=== PATIENT | female | born 2000 | race Caucasian/White ===

== ENCOUNTER 2019-09-19 10:45 | Emergency (ER) | payer OTHER, MEDICAID, SELFPAY ==
--- NOTE | ~2019-09-19 | US_ITS ---
EXAMINATION: US OB <=14 wk fetus w TV DATE: 09/19/2019 13:03 INDICATION: Vaginal bleeding during first trimester TECHNIQUE: Real-time pelvic transabdominal and transvaginal ultrasound was performed. COMPARISON: None. FINDINGS: The uterus measures 6.6 x 3.8 x 6.9 cm. There is an intrauterine gestational sac. A yolk s ac is identified. The heart motion is not detected. The crown rump length measures 5 mm , which correlates with an estimated gestational age of 6 weeks and 1 day(s) (+/-) 4 day(s). The right ovary measures 3.4 x 2.0 x 1.9 cm. The left ovary measures 3.2 x 1.7 x 2.0 cm. There is nor mal vascular flow in the ovaries. There is no free fluid in the pelvis. IMPRESSION: 1. Intrauterine with pole measuring 5 mm without detectable heart tones. Findin gs are suspicious for, but not diagnostic of, failure. If the patient is clinically stable, recommend followup with serial beta-hCG and ultrasound. 2. Estimated gestational age is 6 weeks and 1 day(s) (+/-) 4 day(s) and an estimated delivery date of 05/13/2020. Reviewed, dictated and finalized at location A. IMPRESSION: 1. Intrauterine with pole measuring 5 mm without detectable fet al heart tones. Findings are suspicious for, but not diagnostic of, f ailure. If the patient is clinically stable, recommend followup with serial bet a-hCG and ultrasound. 2. Estimated gestational age is 6 weeks and 1 day(s) (+/-) 4 day(s) and an endy mated delivery date of 05/13/2020.
--- NOTE | 2019-09-19 10:51 | ED.PREGNANCY ---
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 Patient reports yesterday she experienced some lower pelvic cramping, today has had some light spotting. No large blood clots or brisk bleeding. Patient reports she did have vaginal intercourse yesterday. Patient states last was complicated by a spontaneous miscarriage that required a D&C. Patient denies any other vaginal discharge. No new recent sexual partners or history of sexually transmitted infection. Patient denies back pain, no dysuria. Related Data Home Medications Medication Instructions Recorded Confirmed PNV cmb#95-ferrous fumarate-FA tablet PO 09/19/19 [] Allergies Allergy/AdvReac Type Severity Reaction Status Date / Time No Known Allergies Allergy Verified 09/19/19 10:56 Review of Systems Review of Systems: Narrative: CONSTITUTIONAL: Denies fever CARDIOVASCULAR: Denies chest pain RESPIRATORY: Denies cough or dyspnea. GASTROINTESTINAL: Denies abdominal pain, reports pelvic pain : Reports vaginal bleeding SKIN: Denies rash MUSCULOSKELETAL: Denies back pain NEUROLOGIC: Denies headache PMFSH Past Medical History Medical History Spontaneous miscarriage Surgical History Surgical History H/O dilation and curettage History of dental surgery Social History Social History (Updated 09/19/19 @ 11:22 by Suzanne Ty MD) Smoking status: Never smoker Alcohol intake: never Substance use: never Gender identity (if verbalized by the patient): Female Exam Narrative: Exam Narrative: GENERAL: Awake, alert, conversant HEAD: Normocephalic, atraumatic. EYES: PERRLA and EOMI. ENT: Nares clear, no rhinorrhea or epistaxis. Mucous membranes moist. NECK: Supple. CHEST: No respiratory distress, breathing even and non labored HEART: Regular rate, sinus rhythm ABDOMEN:Non distended, non tender : Labia majora and minora normal without lesions. Vagina without blood. No cervical motion tenderness. No adnexal tenderness or fullness bilaterally. No discharge present. EXTREMITIES: Normal range of motion. No edema. SKIN: Warm, dry, no rash. NEURO:No focal deficits. Alert and oriented x3 Course Vital Signs Vital signs: Vital Signs Temperature 36.9 C 09/19/19 10:52 Pulse Rate 63 09/19/19 10:52 Respiratory Rate 20 09/19/19 10:52 Blood Pressure 126/61 09/19/19 10:52 Pulse Oximetry 100 09/19/19 10:52 Temperature 36.9 C 09/19/19 10:52 Pulse Rate 63 09/19/19 10:52 Respiratory Rate 20 09/19/19 10:52 Blood Pressure 126/61 09/19/19 10:52 Pulse Oximetry 100 09/19/19 10:52 MDM - OB/Uterine Contractions MDM Narrative Medical decision making narrative: Patient presented to the emergency department for evaluation of vaginal bleeding in the setting of early . Patient with history of prior miscarriage. The time of initial assessment, ABCs are intact and vital signs are stable. Patient with a reassuring pelvic exam, no brisk bleeding. No large clots present. No tenderness or findings concerning for cervicitis or PID. Labs were drawn. Ultrasound shows pole without heartbeat. This could be due to demise. Patient's blood type is O+ based on previous record. I went back to reassess the patient and she had eloped from the emergency department. No nursing staff were able to see her prior to leaving. She is not able to hear the results of her ultrasound. Regardless, she does not need any RhoGam, no blood transfusions. Patient eloped. Differential
[2019-09-19 10:52] VITALS: BP 126/61; PULSE 63; RESP 20; TEMP 36.9; O2SAT 100
[2019-09-19 12:39] LABS: Basophils Percent Auto 0.4 % (0.2-1.2); Eosinophils Absolute Auto 0.1 K/mm3 (0-0.3); Eosinophils Percent Auto 0.7 % (0-4.4); Hematocrit 39.1 % (37.0-47.0); Hemoglobin 13.3 g/dL (12.0-15.0); Immature Granulocyte Absolute 0.02 K/mm3 (0.00-0.031); Immature Granulocyte Percent A 0.2 % (0-0.5); Lymphocytes Absolute Auto 2.99 K/mm3 (0.9-3.2); Lymphocytes Percent Auto 32.5 % (18.3-44.2); Mean Corpuscular Volume 85.4 fl (80-100); Mean Platelet Volume 9.4 fl (7.4-10.4); Monocytes Absolute Auto 0.9 K/mm3 (0.1-0.6); Monocytes Percent Auto 9.3 % (2.6-8.5); Neutrophils Absolute Auto 5.2 K/mm3 (1.3-6.7); Neutrophils Percent Auto 56.9 % (45.5-73.1); Platelet Count Result 329 k/mm3 (150-375); Red Blood Count 4.58 M/mm3 (4.2-5.4); Red Cell Distribution Width 11.9 % (11.5-14.5); White Blood Count 9.2 K/mm3 (4.5-10.0)
[2019-09-19 12:54] LABS: Alanine Aminotransferase 16 U/L (4-35); Albumin Level 4.6 g/dL (3.5-5.1); Alkaline Phosphatase 73 U/L (38-126); Aspartate Amino Transferase 33 U/L (14-36); Bilirubin,Total 0.7 mg/dL (0.2-1.3); Blood Urea Nitrogen 9 mg/dL (7-17); Calcium 9.2 mg/dL (8.4-10.2); Carbon Dioxide 23 mmol/L (22-30); Chloride 105 mmol/L (98-107); Estimated CRCL calculation 129 ml/min; Estimated Glomerular Filt Rate > 60; Glucose 84 mg/dL (65-105); Potassium 3.7 mmol/L (3.4-5.0); Sodium 136 mmol/L (137-145)
[2019-09-19 12:55] LABS: INR 1.1; Prothrombin Time 13.8 Seconds (11.1-14.7)
[2019-09-19 12:56] LABS: Partial Thromboplastin Time 30.5 SECONDS (22.3-36.8)
[2019-09-19 13:02] LABS: Add Urine Microscopic? YES; Appearance Urine Cloudy (Clear); Bacteria Urine 1+ /hpf; Bilirubin Urine Negative (Negative); Blood Urine 3+ (Negative); Color Urine Yellow (Yellow); Glucose Urine UA Negative (Negative); Ketones Urine Negative (Negative); Leukocyte Esterase Ur Trace LEU/UL (Negative); Mucus Urine Rare /lpf; Nitrate Urine Negative (Negative); Protein Urine 1+ mg/dL (Negative); RBC Urine 0-2 /hpf (0-2); Specific Grav Ur 1.016 (1.001-1.035); Squamous Epithelial Cell Urine Many /hpf (Few); Urobilinogen Urine Negative mg/dL (<2.0)
--- NOTE | 2019-09-19 13:25 | PC.NURSE ---
This RN went to room, pt is not in room, belongings gone. Per intake nurse out front noticed the pt leave aprox 20 mins ago. Pt did not alert nurse she was going to leave.
== END 2019-09-19 13:25 | disposition left against medical advice (07) ==
PROVIDERS: Emergency Provider Emergency Medicine; PCP Physician Assistant
DX: O20.9 Hemorrhage in early pregnancy, unspecified (principal); Z3A.01 Less than 8 weeks gestation of pregnancy
CPT/HCPCS: 36415; 76801; 76817; 80053; 81001; 84702; 85025; 85461; 85610; 85730; 87086; 87088; 87808; 99284

== ENCOUNTER 2019-09-19 22:21 | Emergency (ER) | payer OTHER, MEDICAID, SELFPAY ==
[2019-09-19 22:30] VITALS: BP 131/65; PULSE 70; RESP 20; TEMP 37.2; O2SAT 100
--- NOTE | 2019-09-19 23:48 | ED.FEMALEGU ---
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 Seen here this morning for vaginal bleeding and cramps. She had an ultrasound and lab work done at that time. She had a bHcg of 22,000 and an US showing now heart tones. She eloped from the department without hearing any of the results. She now returnss because her symptoms have increased. Related Data Home Medications Medication Instructions Recorded Confirmed PNV cmb#95-ferrous fumarate-FA tablet PO 09/19/19 [] Allergies Allergy/AdvReac Type Severity Reaction Status Date / Time No Known Allergies Allergy Verified 09/20/19 21:22 Review of Systems Review of Systems: All systems reviewed & are unremarkable except as noted in HPI and below PMFSH Past Medical History Medical History Spontaneous miscarriage Surgical History Surgical History H/O dilation and curettage History of dental surgery Social History Social History Smoking status: Never smoker Alcohol intake: never Substance use: never Gender identity (if verbalized by the patient): Female Exam Const: General: healthy appearing, no acute distress and alert Orientation/consciousness: patient oriented x3 HENMT: Head: normal to inspection Neck: Neck: normal visual inspection and no lymphadenopathy Chest: Chest palpation & inspection: no tenderness Resp: Effort & Inspection: normal respiratory effort Auscultation: clear to auscultation bilaterally, no rales, no rhonchi and no wheezes Cardio: Jugular venous distension: no JVD Rate: regular rate Rhythm: regular rhythm Heart sounds: no murmurs GI: Inspection: non-distended GI Palp: Yes Soft to palpation and No Tenderness to palpation present (GI) Skin: General skin exam: normal color Neuro: General: patient oriented x3 and moves all extremities Speech: normal speech Extrem: General: no edema Psych: Appearance: well kempt Affect: normal affect Course Vital Signs Vital signs: Vital Signs Temperature 37.2 C 09/19/19 22:30 Pulse Rate 70 09/19/19 22:30 Respiratory Rate 20 09/19/19 22:30 Blood Pressure 131/65 09/19/19 22:30 Pulse Oximetry 100 09/19/19 22:30 Temperature 37.2 C 09/19/19 22:30 Pulse Rate 69 09/20/19 00:22 Respiratory Rate 16 09/20/19 00:22 Blood Pressure 129/83 09/20/19 00:22 Pulse Oximetry 99 09/20/19 00:22 MDM - Female Genitourinary MDM Narrative Medical decision making narrative: I discussed the results from her earlier visit with her and what to expect. Case discussed with Dr. Francois. She can follow-up with them in clinic this week. Lab Data Attestation: I reviewed the patient's lab results. Discharge Plan Discharge Clinical Impression: Incomplete miscarriage Patient Disposition: Home, Self-Care Condition: Stable Instructions: Miscarriage (ED) Additional Instructions: Call Dr. Barclay's clinic on Saturday to arrange appropriate follow-up Prescriptions: No Action PNV cmb#95-ferrous fumarate-FA [] 28 mg iron- 800 mcg Tablet PO RF: 0 ibuprofen 600 mg tablet 600 mg PO TID PRN (Reason: pain) Qty: 20 RF: 0 Follow-up/Referrals: Darren,CRUZITO Noel [Primary Care Provider] - Discharge Date/Time: 09/20/19 00:23
[2019-09-20 00:22] VITALS: BP 129/83; PULSE 69; RESP 16; O2SAT 99
== END 2019-09-20 00:23 | disposition home or self-care (01) ==
PROVIDERS: Emergency Provider Emergency Medicine; PCP Physician Assistant
DX: O03.4 Incomplete spontaneous abortion without complication (principal)
CPT/HCPCS: 99281

== ENCOUNTER 2019-09-20 21:17 | Emergency (ER) | payer OTHER, MEDICAID, SELFPAY ==
[2019-09-20 21:19] VITALS: BP 117/68; PULSE 66; RESP 18; TEMP 36.6; O2SAT 100
--- NOTE | 2019-09-20 22:08 | ED.PREGNANCY ---
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 She has been here twice recently. The ultrasound showed demise. She was seen last night but the chart has not yet been published. She has an appointment with Dr. Barclay on the . He had 10 out of 10 pain prior to coming in. The pain was 5 out of 10 when she arrived. Then she passed a small amount of tissue. She said the pain now is 3 out of 10. She took Tylenol which did not help. They did not have any ibuprofen at home. She has a history of miscarriage 2 years ago, at that time she had a D&C. 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 She wants to continue the vitamins because it strengthens her nails and hair. MD Complaint: abdominal pain, vaginal bleeding and contractions Onset (ago): hour(s) Pain Consistency: constant Location: pelvis Severity: severe Severity scale (1-10): 9 Quality: Cramping Radiation: pelvis Relieving factors: none Exacerbating factors: none Associated symptoms: denies other symptoms Vaginal bleeding: light Patient : Yes Related Data Home Medications Medication Instructions Recorded Confirmed PNV cmb#95-ferrous fumarate-FA tablet PO 09/19/19 [] Allergies Allergy/AdvReac Type Severity Reaction Status Date / Time No Known Allergies Allergy Verified 09/20/19 21:22 Review of Systems Review of Systems: Narrative: CONSTITUTIONAL: Denies fever, chills, or sweats. EYES: Denies visual changes, redness, or discharge. ENT: Denies rhinorrhea, congestion, sore throat, or otalgia. CARDIOVASCULAR: Denies chest pain, palpitations, or edema. RESPIRATORY: Denies cough or dyspnea. GASTROINTESTINAL: Denies abdominal pain, nausea, vomiting, or diarrhea. GENITOURINARY: Denies dysuria or hematuria. SKIN: Denies rash or itching. MUSCULOSKELETAL: Denies back pain, joint pain, or myalgia. NEUROLOGIC: Denies headache, numbness, or weakness. PSYCHIATRIC: Denies anxiety or depression. : Vaginal bleeding and tissue passing. [facility] Past Medical History Medical History Spontaneous miscarriage Surgical History Surgical History H/O dilation and curettage History of dental surgery Social History Social History Smoking status: Never smoker Alcohol intake: never Substance use: never Gender identity (if verbalized by the patient): Female Exam Narrative: Exam Narrative: GENERAL: Well-appearing, well-nourished, and in no acute distress. HEAD: Normocephalic, atraumatic. EYES: PERRLA and EOMI. ENT: Nares clear, no rhinorrhea or epistaxis. Mucous membranes moist. NECK: Supple. CHEST: Clear to auscultation. No respiratory distress. HEART: Regular rate and rhythm. No murmur heard. Normal peripheral pulses. ABDOMEN: Soft, nontender, nondistended, normal active bowel sounds. EXTREMITIES: Normal range of motion. No edema. SKIN: Warm, dry, no rash. NEURO: No focal deficits. Alert and oriented x3. PSYCH: Normal mood and affect. Course Vital Signs Vital signs: Vital Signs Temperature 97.9 F 09/20/19 21:19 Pulse Rate 66 09/20/19 21:19 Respiratory Rate 18 09/20/19 21:19 Blood Pressure 117/68 09/20/19 21:19 Pulse Oximetry 100 09/20/19 21:19 Temperature 97.9 F 09/20/19 21:19 Pulse Rate 66 09/20/19 21:19 Respiratory Rate 18 09/20/19 21:19 Blood Pressure 117/68 09/20/19 21:19 Pulse Oximetry 100 09/20/19 21:19 MDM - OB/Uterine Contractions Differential Diagnosis Differential diagnosis: Likely other (Active miscarriage) Medical Records Attestation: I reviewed the patient's medical records. Lab Data Attesta
[2019-09-20] MEDS: IBUPROFEN 600 MG TABLET PO (22:14)
[2019-09-20 22:17] VITALS: BP 114/81; PULSE 68; RESP 16; TEMP 36.9; O2SAT 100
== END 2019-09-20 22:17 | disposition home or self-care (01) ==
PROVIDERS: Emergency Provider Emergency Medicine; PCP Physician Assistant
DX: O03.9 Complete or unspecified spontaneous abortion without complication (principal)
CPT/HCPCS: 99283; A9270

== ENCOUNTER 2019-09-30 00:54 | Outpatient (CLI) | payer OTHER, MEDICAID, SELFPAY ==
[2019-09-30 19:19] LABS: SARS-CoV-2 RNA PCR Negative
== END 2019-09-30 00:55 | disposition home or self-care (01) ==
LOC: ANHCOVIDDT 00:56
PROVIDERS: PCP Physician Assistant; Visit Provider Obstetrics & Gynecology
DX: Z01.812 Encounter for preprocedural laboratory examination (principal); Z11.59 Encounter for screening for other viral diseases
CPT/HCPCS: 87635; C9803; U0003

== ENCOUNTER 2020-03-31 08:46 | Emergency (ER) | payer OTHER, BC, MEDICAID, SELFPAY ==
[2020-03-31 09:00] VITALS: BP 126/81; PULSE 62; RESP 16; TEMP 36.8; O2SAT 98
[2020-03-31 09:05] LABS: Add Urine Microscopic? YES; Appearance Urine Clear (Clear); Bilirubin Urine Negative (Negative); Blood Urine 2+ (Negative); Color Urine Yellow (Yellow); Glucose Urine UA Negative (Negative); Ketones Urine Negative (Negative); Leukocyte Esterase Ur Negative LEU/UL (Negative); Nitrate Urine Negative (Negative); Protein Urine Negative (Negative); Specific Grav Ur 1.015 (1.010-1.020)
[2020-03-31 09:10] LABS: Bacteria Urine Trace /hpf; Squamous Epithelial Cell Urine Few /hpf (Few); WBC Urine 0-3 /hpf (0-3)
[2020-03-31 09:11] LABS: Pregnancy On Board Control Positive; Urine Pregnancy Test Negative
--- NOTE | 2020-03-31 09:32 | ED.FEMALEGU ---
HPI - Female Genitourinary General Chief complaint: Urogenital-Female Stated complaint: cramps while urinating Source: patient Mode of arrival: ambulatory Limitations: no limitations History of Present Illness HPI Narrative: This is a 19-year-old female presents with some 2 day history of urinary frequency and burning with cramping and pressure like pain in the suprapubic area with no fever chills no nausea vomiting no hematuria no flank pain no nausea vomiting. MD elicited complaint: dysuria and back pain Onset (ago): day(s) Location of symptoms: suprapubic Severity: moderate Severity scale (1-10): 5 Quality of pain: burning Consistency: intermittent Vaginal discharge: none Related Data Allergies Allergy/AdvReac Type Severity Reaction Status Date / Time No Known Allergies Allergy Verified 09/29/19 15:14 Review of Systems Review of Systems: All systems reviewed & are unremarkable except as noted in HPI and below PMFSH Past Medical History Medical History Anxiety Spontaneous miscarriage Surgical History Surgical History H/O dilation and curettage History of dental surgery Social History Social History Smoking status: Never smoker Alcohol intake: never Substance use: never Gender identity (if verbalized by the patient): Female Spiritual care concerns: No Exam Const: General: no acute distress and alert Orientation/consciousness: patient oriented x3 HENMT: Head: normal to inspection Eyes: General: appearance normal, both eyes and all related structures Conjunctivae: conjunctivae normal Pupils: Equal, round and reactive pupils present EOM: EOMs intact bilaterally Neck: Neck: normal visual inspection, no lymphadenopathy and no meningeal signs Chest: Chest palpation & inspection: normal inspection of the chest Resp: Effort & Inspection: normal respiratory effort Cardio: Rate: regular rate Rhythm: regular rhythm GI: GI Palp: Yes Tenderness to palpation present (GI) ( suprapubic area) : General: Yes no CVA tenderness Urinary Catheter: Urinary Catheter: patent and draining Back/Spine/Pelvis: Back: no CVA tenderness Skin: General skin exam: normal color Rashes: no rashes Neuro: General: patient oriented x3 and moves all extremities Psych: Mental Status: mental status grossly normal Affect: normal affect Attitude: cooperative Course Course Emergency Course: patient resting comfortably has some suprapubic pressure, assessed patient and advise will be sending an antibiotic to her pharmacy and a note for off work today. MDM - Female Genitourinary Lab Data Labs: Lab Results 03/31/20 03/31/20 Range/Units 09:00 09:03 Urine Color Yellow (Yellow) Urine Appearance Clear (Clear) Urine pH 7.0 (5.0-8.0) Ur Specific [place] 1.015 (1.010-1.020) Urine Protein Negative (Negative) Urine Glucose (UA) Negative (Negative) Urine Ketones Negative (Negative) Ur Blood (Man) 2+ H (Negative) Urine Nitrate Negative (Negative) Urine Bilirubin Negative (Negative) Urine Urobilinogen 1.0 (0.2-1.0) mg/dL Leukocyte Esterase Rfl Negative (Negative) BRIAN/UL Urine RBC 6-10 H (0-2) /hpf Urine WBC 0-3 (0-3) /hpf Ur Squamous Epith Cells Few (Few) /hpf Urine Bacteria Trace (None) /hpf Urine Test Negative Critical Care Time Critical Care Time Critical Care Time: No Discharge Plan Discharge Clinical Impression: Urinary tract infection Qualifiers: Urinary tract infection type: acute cystitis Hematuria presence: without hematuria Qualified Code(s): N30.00 - Acute cystitis without hematuria Patient Disposition: Home, Self-Care Condition: Stable Instructions: Antibiotic Form, Urinary Tract Infection in Women (ED) Additional Instructions:
[2020-03-31 09:40] VITALS: RESP 16
== END 2020-03-31 09:43 | disposition home or self-care (01) ==
PROVIDERS: Emergency Provider Emergency Medicine; PCP Physician Assistant
DX: N30.00 Acute cystitis without hematuria (principal)
CPT/HCPCS: 81001; 81025; 99283

== ENCOUNTER 2020-06-08 10:49 | Emergency (ER) | payer OTHER, SELFPAY ==
[2020-06-08 11:02] VITALS: BP 120/66; PULSE 74; RESP 19; TEMP 37.1; O2SAT 100
--- NOTE | 2020-06-08 11:23 | ED.GENADULT ---
HPI - General Adult General Chief complaint: Nausea/Vomiting/Diarrhea Stated complaint: vomiting, loose stools, Chills Source: patient Mode of arrival: ambulatory Limitations: no limitations History of Present Illness HPI narrative: Oumou is a 19F with a PMH of anxiety that presents to clinic with a couple days of nausea, vomiting, diarrhea and abdominal pain. Yesterday she had countless episodes of NBNB vomiting and watery diarrhea as well as subjective fevers, chills and sweats. Her boyfriend had the same thing. No hematochezia, melena, or hematemesis. She had COVID a few months ago. Related Data Home Medications Medication Instructions Recorded Confirmed No Home Medications 06/08/20 06/08/20 Allergies Allergy/AdvReac Type Severity Reaction Status Date / Time No Known Allergies Allergy Verified 09/29/19 15:14 Review of Systems Constitutional: Constitutional: Reports chills, Reports fatigue and Reports fever(s) Eyes: Eyes: Reports no additional eye complaints ENT: Reports system reviewed and no additional complaints, except as documented Cardiovascular: Cardiovascular: Reports no additional cardiovascular complaints Respiratory: Respiratory: Reports no additional respiratory complaints Gastrointestinal: Gastrointestinal: Reports as per HPI Genitourinary: Genitourinary: Reports no additional female genitourinary complaints Musculoskeletal: Musculoskeletal: Reports no additional musculoskeletal complaints Integumentary/Breasts: Skin/Breast: Reports system reviewed and no additional complaints, except as docu Neurologic: Reports system reviewed and no additional complaints, except as documented Psychiatric: Psychiatric: Reports no additional psychiatric complaints Endocrine: Endocrine: Reports no additional endocrine complaints Hematologic/Lymphatic: Hematologic/Lymphatic: Reports no additional hematologic/lymphatic complaints Allergic/Immunologic: Allergic/Immunologic: Reports no additional allergic/immunologic complaints [facility] Past Medical History Medical History Anxiety Spontaneous miscarriage Surgical History Surgical History H/O dilation and curettage History of dental surgery Social History Social History Smoking status: Never smoker Alcohol intake: never Substance use: never Gender identity (if verbalized by the patient): Female Spiritual care concerns: No Exam Const: General: no acute distress and alert Orientation/consciousness: patient oriented x3 Limitations: No altered mental status HENMT: Head: normal to inspection Other: dry mucous membranes Eyes: Conjunctivae: conjunctivae normal Pupils: Equal, round and reactive pupils present Neck: Neck: normal visual inspection Chest: Chest palpation & inspection: normal inspection of the chest Resp: Effort & Inspection: normal respiratory effort, not labored, not tachypneic and no use of accessory muscles Auscultation: clear to auscultation bilaterally Cardio: Rate: regular rate Rhythm: regular rhythm Heart sounds: no murmurs GI: Inspection: non-distended GI Palp: Yes Soft to palpation, No Tenderness to palpation present (GI) and No Guarding due to palpation present (GI) Other: negative obturator sign and negative psoas sign : General: Yes no CVA tenderness Back/Spine/Pelvis: Back: no CVA tenderness Skin: General skin exam: normal color Rashes: no rashes Neuro: General: patient oriented x3, moves all extremities and no focal motor deficits Extrem: General: normal to inspection Psych: Mental Status: mental status grossly normal Affect: normal affect Course Course Emergency Course: Oumou was seen and evaluated. Ordered labs, fluids and IV zofran. She felt much better after meds and fluids and was then discharged. Vital Signs V
[2020-06-08 11:49] LABS: Basophils Absolute Auto 0.03 K/mm3 (0.00-0.10); Basophils Percent Auto 0.3 % (0.0-1.0); Eosinophils Absolute Auto 0.01 K/mm3 (0.02-0.50); Eosinophils Percent Auto 0.1 % (1.0-6.0); Hematocrit 41.2 % (35.0-49.0); Hemoglobin 13.8 g/dL (12.0-15.0); Immature Granulocyte Absolute 0.04 K/mm3 (0.00-0.00); Immature Granulocyte Percent A 0.4 % (0.0-0.0); Lymphocytes Absolute Auto 1.28 K/mm3 (1.10-4.50); Lymphocytes Percent Auto 12.3 % (18.0-42.0); Mean Corpuscular HGB Conc 33.5 g/dL (32.0-36.0); Mean Corpuscular Hemoglobin 28.9 pg (27.0-31.0); Mean Corpuscular Volume 86.4 fL (78.0-102.0); Mean Platelet Volume 9.3 fl (9.2-11.8); Monocytes Absolute Auto 1.06 K/mm3 (0.10-0.90); Monocytes Percent Auto 10.2 % (2.0-11.0); Neutrophils Percent Auto 76.7 % (50.0-70.0); Platelet Count Result 278 K/mm3 (150-420); Red Blood Count 4.77 M/mm3 (4.20-5.40); White Blood Count 10.4 K/mm3 (4.8-10.8)
[2020-06-08 11:51] LABS: Add Urine Microscopic? YES; Appearance Urine Clear (Clear); Bilirubin Urine 1+ (Negative); Blood Urine Negative (Negative); Color Urine Yellow (Yellow); Glucose Urine UA Negative (Negative); Ketones Urine 3+ (Negative); Leukocyte Esterase Ur Negative (Negative); Nitrate Urine Negative (Negative); Protein Urine Trace (Negative); Specific Grav Ur 1.025 (1.010-1.020)
[2020-06-08 11:53] LABS: Pregnancy On Board Control Positive; Urine Pregnancy Test Negative
[2020-06-08] MEDS: ONDANSETRON INJ 4 MG/2 ML VIAL IV PUSH (11:53)
[2020-06-08] MEDS: LACTATED RINGERS 1,000 ML 999 ML IV CONT (11:53)
[2020-06-08 11:59] LABS: Bacteria Urine 3+ /hpf; RBC Urine 0-2 /hpf (0-2); Squamous Epithelial Cell Urine Few /hpf (Few)
[2020-06-08 12:04] LABS: Alanine Aminotransferase 15 U/L (14-59); Alkaline Phosphatase 63 U/L (46-116); Anion Gap 9 mmol/L (8-16); Aspartate Amino Transferase 13 U/L (15-37); Bilirubin,Total 0.8 mg/dL (0.00-1.00); Blood Urea Nitrogen 12 mg/dL (7-18); Carbon Dioxide 27 mmol/L (21-32); Chloride 99 mmol/L (98-108); Estimated CRCL calculation 77 ml/min; Estimated Glomerular Filt Rate > 60; Glucose 91 mg/dL (70-99); Osmolality Calculated 279 mOsm/kg (285-295); Sodium 135 mmol/L (136-145); Total Protein 7.5 g/dL (6.4-8.2)
[2020-06-08 12:05] LABS: Lipase 30 U/L (73-393)
[2020-06-08 12:29] LABS: Influenza A QL RT-PCR Negative (Negative); Influenza B QL RT-PCR Negative (Negative); SARS-CoV-2 RNA PCR Negative (Negative)
[2020-06-08 13:00] VITALS: BP 116/64; PULSE 71; RESP 19; O2SAT 100
== END 2020-06-08 13:09 | disposition home or self-care (01) ==
PROVIDERS: Emergency Provider Family Medicine; PCP Physician Assistant
DX: K52.9 Noninfective gastroenteritis and colitis, unspecified (principal); Z20.822 Contact with and (suspected) exposure to COVID-19
CPT/HCPCS: 36415; 80053; 81001; 81025; 83690; 85025; 87502; 96361; 96374; 99283; 99284; C9803; J2405; J7120; U0003; U0005

== ENCOUNTER 2022-02-02 15:31 | Emergency (ER) | payer OTHER, SELFPAY ==
--- NOTE | ~2022-02-02 | CT_ITS ---
EXAMINATION: CT lumbar spine wo con DATE: 02/02/2022 17:40 INDICATION: Low back pain TECHNIQUE: Computed tomography (CT) of the lumbar spine was performed without intravenous contrast. T he dose-length product was 364.38 mGy-cm. Automated exposure control and iterative reconstruction george hnique were employed. COMPARISON: None FINDINGS: Vertebral body and disc heights are preserved. A levocurvature of the lumbar spine. No sign ificant spinal stenosis. No fracture or traumatic malalignment. No evidence for spondylolisthesis. Saldana rrounding paraspinal soft tissues are unremarkable. IMPRESSION: 1. No acute abnormality of the lumbar spine. Reviewed, dictated and finalized at location A. [facility]
[2022-02-02 15:31] VITALS: BP 124/69; PULSE 90; RESP 16; TEMP 36.6; O2SAT 100
[2022-02-02] MEDS: KETOROLAC 30 MG/ML VIAL (*BKC) IM (16:45)
[2022-02-02 17:20] LABS: SPREG INTERNAL CONTROL Positive; Serum Qual hCG Negative
--- NOTE | 2022-02-02 17:38 | PC.NURSE ---
PT IS NOW LYING ON HER LEFT SIDE TALKING WITH SIG OTHER. PT REPORTS GETTING ON AND OFF THE TABLE IN CT WAS PAINFUL. WILL CONTINUE TO MONITOR.
[2022-02-02 18:50] VITALS: BP 120/68; PULSE 80; RESP 18; O2SAT 98
--- NOTE | 2022-02-02 19:03 | ED.BACK ---
HPI - Back Pain/Injury General Chief Complaint: Back Pain/Injury Stated Complaint: ambulace Time Seen by Provider: 02/02/22 15:35 Source: patient, EMS and RN notes reviewed Mode of arrival: EMS Limitations: no limitations History of Present Illness MD elicited complaint: back pain Pertinent past history: prior back pain Onset (ago): day(s) (2) Timing: constant Severity: moderate Pain scale (0-10): 7 Similar Symptoms Previously: Yes Quality: dull and aching Location: lumbar spine Radiation: none Exacerbating factors: movement and walking Relieving factors: immobilization Associated symptoms: denies other symptoms Work related injury: No Related Data Allergies Allergy/AdvReac Type Severity Reaction Status Date / Time No Known Allergies Allergy Verified 02/02/22 15:44 Review of Systems Review of Systems: All systems reviewed & are unremarkable except as noted in HPI and below Constitutional: Constitutional: Reports no additional constitutional complaints Eyes: Eyes: Reports no additional eye complaints ENT: Reports system reviewed and no additional complaints, except as documented Cardiovascular: Cardiovascular: Reports no additional cardiovascular complaints Respiratory: Respiratory: Reports no additional respiratory complaints Gastrointestinal: Gastrointestinal: Reports no additional gastrointestinal complaints Genitourinary: Genitourinary: Reports no additional female genitourinary complaints Musculoskeletal: Musculoskeletal: Reports no additional musculoskeletal complaints Integumentary/Breasts: Skin/Breast: Reports system reviewed and no additional complaints, except as docu Neurologic: Reports system reviewed and no additional complaints, except as documented Psychiatric: Psychiatric: Reports no additional psychiatric complaints Endocrine: Endocrine: Reports no additional endocrine complaints Hematologic/Lymphatic: Hematologic/Lymphatic: Reports no additional hematologic/lymphatic complaints Allergic/Immunologic: Allergic/Immunologic: Reports no additional allergic/immunologic complaints [facility] Past Medical History Medical History (Updated 02/07/22 @ 20:42 by Leonid Peterson MD) Anxiety Low back pain Spontaneous miscarriage Surgical History Surgical History H/O dilation and curettage History of dental surgery Social History Social History Smoking status: Never smoker Alcohol intake: never Substance use: never Gender identity (if verbalized by the patient): Female Spiritual care concerns: No Exam Const: General: healthy appearing, no acute distress and well nourished Nutritional Appearance: well nourished Orientation/consciousness: patient oriented x3 Limitations: no limitations Other: Back: minimally tender paraspinal lumbar back HENMT: Head: normal to inspection Ears: external ears normal, TM's normal bilaterally and EAC's normal Face/Nose/Sinus: Normal external nose present, Normal nares present, normal facial exam and sinuses nontender Face and sinus: normal facial exam and sinuses nontender Mouth: Yes Normal oral and palatal mucosa present and Yes moist mucous membranes Teeth and gingiva: dentition normal Throat: posterior oropharynx normal Eyes: Conjunctivae: conjunctivae normal Pupils: Equal, round and reactive pupils present EOM: EOMs intact bilaterally Neck: Neck: normal visual inspection, no lymphadenopathy and no meningeal signs Chest: Chest palpation & inspection: normal inspection of the chest Resp: Effort & Inspection: normal respiratory effort Auscultation: clear to auscultation bilaterally Cardio: Rate: regular rate Rhythm: regular rhythm GI: GI Palp: Yes Soft to palpation and No Tenderness to palpation present (GI) Auscultation: normal bowel sounds : General: Yes bladder normal to palpation and Yes no CVA tenderness Bimanual
[2022-02-02 19:08] VITALS: BP 128/80; PULSE 88; RESP 18; TEMP 36.6; O2SAT 98
== END 2022-02-02 19:17 | disposition home or self-care (01) ==
PROVIDERS: Emergency Provider Emergency Medicine; PCP Physician Assistant
DX: S39.012A Strain of muscle, fascia and tendon of lower back, initial encounter (principal)
CPT/HCPCS: 36415; 72131; 84703; 96372; 99284; J1885